=== PATIENT | female | born 1985 | race Caucasian/White ===

== ENCOUNTER 2017-02-13 09:10 | Emergency (ER) | payer OTHER ==
[~2017-02-13] VITALS: Ht 160 cm; Wt 50.8 kg
[~2017-02-13 09:10] MED LIST: BENTYL10 M1 PO; CILOXAN 2.5 ML2.5 ML OPH; CLONIDINE HCL0.2 M1 PO; DOXYCYCLINE100 MG PO; METAXALONE800 MG PO; ZOFRAN ODT4 M1 SL
--- NOTE | 2017-02-13 09:28 | ED GI/GU/ABDOMINAL COMPLAINT ---
History of Present Illness General Chief Complaint: Abdominal Pain/Flank Pain Stated Complaint: ABDOMINAL PAIN, ?CONSTIPATION Source: patient Exam Limitations: no limitations Vital Signs & Intake/Output Vital Signs & Intake/Output Vital Signs Date Time Temp Pulse Resp B/P B/P Pulse O2 O2 Flow FiO2 Mean Ox Delivery Rate 02/13 1113 98.2 88 18 128/85 98 Room Air 02/13 0912 98.6 90 18 148/89 98 Room Air Allergies Coded Allergies: NO KNOWN ALLERGIES (06/06/16) Reconcile Medications Clonidine HCl 0.2 MG TABLET 1 TAB PO QPM WITHDRAWAL Dicyclomine Hydrochloride (Bentyl) 10 MG CAPSULE 1 CAP PO TID PRN ABDOMINAL SPASMS Ondansetron (Zofran Odt) 4 MG TAB.RAPDIS 1 TAB SL TID PRN NAUSEA Triage Note: 31 YEAR OLD FEMALE COMES TO ER WITH COMPLAINTS OF SUDDEN ONSET LOW MID TO R SIDE LOW ABD PAIN THAT STARTED AFTER SHE USED CRACK COCAINE. PT TAKES 60 MG METHADONE DAILY AND LAST TOOK YESTERDAY. LBM 3 DAYS AGO. PT STATES [facility] NOON TODAY. DENIES N/V/D. Triage Nurses Notes Reviewed? yes ? n Is pt currently ? No Onset: Abrupt Duration: hour(s): (1) Timing: no prior history Quality/Severity: cramping, sharpness Severity Numbers: 10 (12 out of 10) Location: left lower quadrant, right lower quadrant Radiation: no radiation Activities at Onset: after smoking crack Prior Abdominal Problems: none Past Sexual History: Unobtainable at this time HPI: Patient is a 31-year-old female who smokes crack daily when she wakes up, has been for the past 2-3 months presenting to the emergency Department chief complaint of sudden onset of lower abdominal pain that started just prior to arrival. She reports that she woke up feeling fine, smokes crack and then started having sudden onset lower abdominal pain. Pain is sharp and stabbing. Pain doesn't radiate. Pain is currently a 12 out of 10. She took ibuprofen prior to arrival. She is due for her methadone dose by noon today. Denies any nausea or vomiting. Last bowel movement was 3 days ago. Denies any alcohol use. Denies any other drug use besides crack. No fevers or chills. (CHASE SMITH) Past History Travel History Traveled to [place] past 21 day No Medical History Any Pertinent Medical History? see below for history Neurological: NONE EENT: NONE Cardiovascular: NONE Respiratory: NONE Gastrointestinal: NONE Hepatic: NONE Renal: NONE Musculoskeletal: NONE Psychiatric: anxiety, bipolar disease, depression, PTSD Endocrine: NONE Blood Disorders: NONE Cancer(s): NONE [employer]/Reproductive: PID Tetanus Vaccine: 10/19/16 Surgical History Surgical History: non-contributory, N Psychosocial History What is your primary language Bermudian Tobacco Use: Current Daily Use Daily Tobacco Use Amount/Type: => 5 Cigarettes daily ETOH Use: denies use Illicit Drug Use: cocaine, METHADONE Family History Hx Contributory? No (CHASE SMITH) Review of Systems Review of Systems Constitutional: Reports: no symptoms. Comments Review of systems: See HPI, All other systems negative. Constitutional, no chills fever or weight loss HEENT: No visual changes no sore throat no congestion Cardiovascular: No chest pain ,palpitation , orthopnea or ankle swelling Skin, no jaundice no rashes Respiratory: No dyspnea cough sputum or hemoptysis GI: No nausea no vomiting : No dysuria No hematuria Muscle skeletal: no back pain, no neck pain, Neurologic: No numbness no confusion Psych: No increased stress anxiety or depression,. Heme/endocrine: No bruising no bleeding no polyuria or polydipsia Immunology: No splenectomy or history of AIDS (CHASE SMITH) Physical Exam Physical Exam General Appearance: anxious, thin, disheveled Gastrointestinal: soft, tenderness Comments: Thin person in mild distress HEENT: extraocular motion intact, no nystagmus. Pupils equally round and reactive to light and accommodation. Nose is atraumatic. Pharynx normal. No swelling or edema. Neck: Normal inspection Back: Nontender, no CVA tenderness. Full range of motion Cardiovascular: Regular rate and rhythms no murmurs rubs or gallops, normal JVP Respiratory: Chest nontender. No respiratory distress.breath sounds clear to auscultation bilaterally Abdomen: Soft, very thin, tender to palpation in lower quadrants bilaterally, nondistended, no appreciable organomegaly. Hypoactive bowel sounds. No ascites Extremity: No edema Neuro: Alert oriented x3 Skin: Scabbing lesions noted on the face, approximately 1-2 cm in size, no surrounding erythema or edema. There are approximately 5-10 lesions. Psych: Anxious, rolling around in the stretcher Core Measures ACS in differential dx? No Severe Sepsis Present: No Septic Shock Present: No (BRI ALVARENGA,CHASE) Progress Differential Diagnosis: appendicitis, bowel obstruction, diverticulitis, ectopic , endometritis, gastritis, hepatitis, ischemic bowel, kidney stone, ovarian cyst, ovarian torsion, pancreatitis, SBO, UTI/pyelo Plan of Care: Orders Procedure Date/time Status URINE DRUG SCREEN FOR ER ONLY 02/13 929 Active LACTIC ACID 02/13 929 Complete URINALYSIS 02/14 928 Active TROPONIN LEVEL 02/14 928 Complete LIPASE 02/14 928 Complete HUMAN BETA HCG SCREEN 02/14 928 Complete ETHANOL 02/14 928 Complete C-REACTIVE PROTEIN 02/14 928 Complete COMPREHENSIVE METABOLIC PANEL 02/14 928 Complete CBC WITHOUT DIFFERENTIAL 02/14 928 Complete EKG 02/14 928 Active Laboratory Tests 02/13/1740: Lactic Acid 0.7 02/13/17 0940: Anion Gap 10, Estimated GFR > 60, BUN/Creatinine Ratio 23.3, Glucose 90, Calcium 9.6, Total Bilirubin 0.4, AST 33, ALT 46, Alkaline Phosphatase 57, Troponin I < 0.01, C-Reactive Prot, Quant < 0.5, Total Protein 6.8, Albumin 4.1, Globulin 2.7 , Albumin/Globulin Ratio 1.5, Lipase 34, Total Beta HCG NEGATIVE, CBC w Diff NO MAN DIFF REQ, RBC 4.44, MCV 91.5, MCH 30.5, RDW 13.1, MPV 6.8 L, Gran % 84.9 H , Lymphocytes % 12.1 L, Monocytes % 2.2, Eosinophils % 0.6, Basophils % 0.2, Absolute Granulocytes 13.3 H, Absolute Lymphocytes 1.9, Absolute Monocytes 0.3, Absolute Eosinophils 0.1, Absolute Basophils 0, PUBS MCHC 33.4, Serum Alcohol < 10.0 Diagnostic Imaging: Viewed by Me: CT Scan. Discussed w/RAD: CT Scan. Radiology Impression: SERVICE DATE: 02/13/17 EXAM TYPE: CAT - CT ABD & PELVIS W IV CONTRAST EXAMINATION: CT ABDOMEN AND PELVIS WITH CONTRAST CLINICAL INFORMATION: Right lower quadrant pain after smoking crack COMPARISON: None. TECHNIQUE: Multidetector volumetric imaging was performed from the lung bases through the pubic symphysis following the uneventful administration of: Oral contrast: No Intravenous contrast: 95 cc Optiray 320 Sagittal and coronal reformatted images were obtained on the technologist workstation. FINDINGS: LUNG BASES: The visualized lung bases are unremarkable. LIVER, GALLBLADDER, AND BILIARY TREE: The liver is normal in size, shape, and attenuation. No focal hepatic lesion or biliary ductal dilatation is present. The gallbladder is unremarkable with no evidence of radiopaque gallstones, gallbladder wall thickening, or obvious pericholecystic inflammatory changes. Common bile duct is prominent, up to 6 mm diameter, but not frankly dilated. PANCREAS: Normal; no mass or surrounding fluid. SPLEEN: Normal size. No focal lesion. ADRENAL GLANDS : Normal; no mass. KIDNEYS AND URETERS: The kidneys are normal in size, shape, and attenuation. No hydronephrosis, hydroureter, or calculi. GASTROINTESTINAL TRACT: Stomach and small bowel are nondilated. The terminal ileum is collapsed with wall thickening most likely attributable to underdistention. There are fecalized small bowel contents within small bowel loops in the right lower quadrant suggesting prolonged small bowel transit time or stasis. Large volume of stool present throughout the colon. No colonic wall thickening or pericolonic inflammatory changes are seen. Although the appendix is not definitely seen, there are no right lower quadrant inflammatory changes to suggest acute appendicitis. ABDOMINAL WALL: No significant hernia is appreciated. LYMPHOVASCULAR STRUCTURES: No lymphadenopathy. The aorta is unremarkable. BLADDER: No focal mass or wall thickening seen. No bladder calculi. PELVIC VISCERA: Normal CT appearance of the uterus and ovaries no adnexal mass. Small, physiologic volume of free fluid. OSSEOUS STRUCTURES: No acute or suspicious osseous abnormality. IMPRESSION: The appendix is not seen but there are no right lower quadrant inflammatory changes to suggest acute appendicitis. There is wall thickening of the terminal ileum. Most likely this is due to underdistention, with an infectious or inflammatory etiology considered less likely. Large volume of stool present throughout the colon, question constipation. Also, there are fecalized small bowel contents within loops of small bowel in the right lower quadrant, suggesting prolonged small bowel transit time or stasis. DICTATED BY: MIRELLA VALLADARES MD DATE/TIME DICTATED:02/13/171103 NARROW GAUGE ENGINEER:EVANGELISTA DATE/TIME TRANSCRIBED:02/13/171103 CONFIDENTIAL, DO NOT COPY WITHOUT APPROPRIATE AUTHORIZATION. Initial ED EKG: sinus rhythm at 85 bpm Comments: Patient will be discharged home, CT shows constipation. Educated on abstaining from drug use. She was informed that this can slow transit time done. Educated on MiraLAX use. She'll return for worsening symptoms or concerns. (CHASE SMITH) Departure Departure Time of Disposition: 1123 Disposition: HOME OR SELF CARE Condition: Stable Clinical Impression Primary Impression: Constipation Qualifiers: Constipation type: slow transit constipation Qualified Code: K59.01 - Slow transit constipation Referrals: UNKNOWN (PCP/Family) Additional Instructions: Follow-up with your primary care physician call to make an appointment. Take MiraLAX [id number] as directed to help with constipation. Increase fluids. Return for worsening symptoms or concerns. Avoid using drugs. Departure Forms: Customer Survey D/C INS-APPENDICITIS EXCLUSION General Discharge Information (CHASE SMITH) PA/PHYSIOTHERAPY AIDE Co-Sign Statement Statement: ED Attending supervision documentation- [] I saw and evaluated the patient. I have also reviewed all the pertinent lab results and diagnostic results. I agree with the findings and the plan of care as documented in the PA's/PHYSIOTHERAPY AIDE's documentation. [X] I have reviewed the ED Record and agree with the PA's/PHYSIOTHERAPY AIDE's documentation. [] Additions or exceptions (if any) to the PAs/PHYSIOTHERAPY AIDE's note and plan are summarized below: [] (MUSTAPHA MCCONNELL,KWAN)
[2017-02-13 09:53] LABS: ABSOLUTE BASOPHIL COUNT 0 /CUMM (0.0-0.2); ABSOLUTE EOSINOPHIL COUNT 0.1 /CUMM (0.0-0.7); ABSOLUTE GRANULOCYTE CT 13.3 /CUMM (1.4-6.5); ABSOLUTE LYMPH COUNT 1.9 /CUMM (1.2-3.4); ABSOLUTE MONOCYTE COUNT 0.3 /CUMM (0.10-0.60); BASOPHIL % 0.2 % (0.0-2.0); EOSINOPHIL % 0.6 % (0-5); HEMATOCRIT 40.6 % (37-47); MEAN CORPUSCULAR HGB 30.5 PG (27.0-31.0); MEAN CORPUSCULAR HGB CONC 33.4 G/DL (33.0-37.0); MEAN CORPUSCULAR VOLUME 91.5 FL (81.0-99.0); MEAN PLATELET VOLUME 6.8 FL (7.4-10.4); RBC DISTRIBUTION WIDTH 13.1 % (11.5-14.5); RED BLOOD CELL CT 4.44 /CUMM (4.20-5.40); WHITE BLOOD CELL COUNT 15.7 /CUMM (4.8-10.8)
[2017-02-13 10:37] LABS: GRANULOCYTE % 84.9 % (42.2-75.2); PLATELET COUNT 466 /CUMM (130-400)
[2017-02-13 11:13] VITALS: BP 128/85
--- NOTE | 2017-02-13 11:21 | CT SCAN REPORT ---
EXAMINATION: CT ABDOMEN AND PELVIS WITH CONTRAST CLINICAL INFORMATION: Right lower quadrant pain after smoking crack COMPARISON: None. TECHNIQUE: Multidetector volumetric imaging was performed from the lung bases through the pubic symphysis following the uneventful administration of: Oral contrast: No Intravenous contrast: 95 cc Optiray 320 Sagittal and coronal reformatted images were obtained on the technologist workstation. FINDINGS: LUNG BASES: The visualized lung bases are unremarkable. LIVER, GALLBLADDER, AND BILIARY TREE: The liver is normal in size, shape, and attenuation. No focal hepatic lesion or biliary ductal dilatation is present. The gallbladder is unremarkable with no evidence of radiopaque gallstones, gallbladder wall thickening, or obvious pericholecystic inflammatory changes. Common bile duct is prominent, up to 6 mm diameter, but not frankly dilated. PANCREAS: Normal; no mass or surrounding fluid. SPLEEN: Normal size. No focal lesion. ADRENAL GLANDS: Normal; no mass. KIDNEYS AND URETERS: The kidneys are normal in size, shape, and attenuation. No hydronephrosis, hydroureter, or calculi. GASTROINTESTINAL TRACT: Stomach and small bowel are nondilated. The terminal ileum is collapsed with wall thickening most likely attributable to underdistention. There are fecalized small bowel contents within small bowel loops in the right lower quadrant suggesting prolonged small bowel transit time or stasis. Large volume of stool present throughout the colon. No colonic wall thickening or pericolonic inflammatory changes are seen. Although the appendix is not definitely seen, there are no right lower quadrant inflammatory changes to suggest acute appendicitis. ABDOMINAL WALL: No significant hernia is appreciated. LYMPHOVASCULAR STRUCTURES: No lymphadenopathy. The aorta is unremarkable. BLADDER: No focal mass or wall thickening seen. No bladder calculi. PELVIC VISCERA: Normal CT appearance of the uterus and ovaries no adnexal mass. Small, physiologic volume of free fluid. OSSEOUS STRUCTURES: No acute or suspicious osseous abnormality. IMPRESSION: The appendix is not seen but there are no right lower quadrant inflammatory changes to suggest acute appendicitis. There is wall thickening of the terminal ileum. Most likely this is due to underdistention, with an infectious or inflammatory etiology considered less likely. Large volume of stool present throughout the colon, question constipation. Also, there are fecalized small bowel contents within loops of small bowel in the right lower quadrant, suggesting prolonged small bowel transit time or stasis.
== END 2017-02-13 12:20 ==
LOC: ERH 09:10
PROVIDERS: Physician Assistant
DX: K59.00 Constipation, unspecified (principal); F14.10 Cocaine abuse, uncomplicated
CPT/HCPCS: 74177; 80307; 93005; 93010; 96374; G0480; J1885